=== PATIENT | male | born 1985 | race Hispanic/Latino ===

== ENCOUNTER 2018-11-29 04:26 | Emergency (ER) | payer OTHER ==
[~2018-11-29] VITALS: Ht 165.1 cm; Wt 112.5 kg
== END 2018-11-29 04:43 | disposition home or self-care (01) ==
LOC: ER 04:26
DX: H60.91 Unspecified otitis externa, right ear (principal); E78.5 Hyperlipidemia, unspecified; M10.9 Gout, unspecified; F17.200 Nicotine dependence, unspecified, uncomplicated
CPT/HCPCS: 99282

== ENCOUNTER 2020-12-19 13:52 | Emergency (ER) | payer OTHER ==
[~2020-12-19] VITALS: Ht 165.1 cm; Wt 112.5 kg
[2020-12-19] MEDS ORDERED: ZOFRAN4 MG SL (14:11)
[2020-12-19] MEDS ORDERED: DECADRON4 M1 PO (14:15)
== END 2020-12-19 15:59 | disposition home or self-care (01) ==
LOC: ER 14:13
DX: U07.1 COVID-19 (principal); R05 Cough
CPT/HCPCS: 99283